=== PATIENT | female | born 1980 | race Caucasian/White ===

== ENCOUNTER 2019-10-15 14:39 | Emergency (ER) | payer OTHER ==
[~2019-10-15] VITALS: Ht 162.6 cm; Wt 68.0 kg
[~2019-10-15 14:39] MED LIST: ALBU90OI INH; ALBU90OI61 INH; AMOX875 PO; CEPH500 PO; CIPR500 PO; Cleocin HCl150 MG PO; HYDACE5 PO; OXYACE5T PO; PRED20 PO; PROCODE120 PO; PROM25 PO; Prednisone20 MG PO; RXHYDACE PO; Sulindac200 MG PO
[2019-10-15] MEDS ORDERED: NAPR220 PO (14:59)
[2019-10-15] MEDS ORDERED: FLUT1DIS2 INH (15:04)
[2019-10-15 15:05] LABS: Source, Urine Clean Catch
[2019-10-15 15:13] LABS: Bilirubin, Urine Neg (Neg); Blood, Urine 2+ (Neg); Glucose Qualitative, Urine Neg (Neg); Ketones, Urine Neg (Neg); Leukocyte Esterase, Urine 3+ (Neg); Nitrite, Urine Pos (Neg); Protein, Urine 1+ (Neg); Urobilinogen, Urine 2+ (Normal)
[2019-10-15 15:20] LABS: Appearance, Urine Hazy (Clear); Color, Urine Yellow (P-Yellow)
[2019-10-15 15:21] LABS: White Blood Cells, Urine TNTC /hpf (0-5)
[2019-10-15 15:22] LABS: BASOPHILS ABSOLUTE AUTO 0.02 K/mm3 (0.00-0.23); BASOPHILS PERCENT AUTO 0 % (0-2); EOSINOPHILS ABSOLUTE AUTO 0.08 K/mm3 (0.00-0.68); EOSINOPHILS PERCENT AUTO 1 % (0-6); Hematocrit 39.9 % (33.0-51.0); Hemoglobin 12.8 g/dL (11.5-16.0); IMMATURE GRAN ABSOLUTE AUTO 0.04 K/mm3 (0.00-0.10); IMMATURE GRAN PERCENT AUTO 0 % (0-1); LYMPHOCYTES ABSOLUTE AUTO 1.16 K/mm3 (0.84-5.20); LYMPHOCYTES PERCENT AUTO 9 % (21-46); MONOCYTES ABSOLUTE AUTO 1.13 K/mm3 (0.16-1.47); MONOCYTES PERCENT AUTO 9 % (4-13); Mean Corpuscular HGB 28.9 pg (26.0-34.0); Mean Corpuscular HGB Conc 32.1 g/dL (31.5-36.5); Mean Corpuscular Volume 90 fL (80-100); Mean Platelet Volume 8.7 fL (9.1-12.4); NEUTROPHILS ABSOLUTE AUTO 10.07 K/mm3 (1.96-9.15); NEUTROPHILS PERCENT AUTO 81 % (41-73); Platelet Count 363 K/mm3 (150-400); RDW Coefficient Variation 12.9 % (11.7-14.2); RDW Standard Deviation 42.7 fL (35.1-46.3); Red Blood Cell Count 4.43 M/mm3 (3.80-5.20)
[2019-10-15 15:23] LABS: Bacteria Many /hpf; Squamous Epithelial Cells Few /hpf (Few)
[2019-10-15 15:50] LABS: Alanine Aminotransfer (ALT/SGP 17 U/L (12-78); Albumin, Blood 3.3 g/dL (3.4-5.0); Albumin/Globulin Ratio 0.9 (0.8-1.8); Alk Phos 104 U/L (50-136); Anion Gap 7 mmol/L (6-16); Aspartate Aminotrans (AST/SGOT 10 U/L (12-37); Bilirubin, Total 0.4 mg/dL (0.1-1.0); Blood Urea Nitrogen 8 mg/dL (8-24); Bun/Creatinine Ratio 11.1 (12.0-20.0); CO2, Blood 25 mmol/L (21-32); Calcium, Blood 8.5 mg/dL (8.5-10.1); Chloride, Blood 105 mmol/L (98-108); Creatinine, Blood 0.72 mg/dL (0.40-1.00); Globulin, Blood 3.8 g/dL (2.2-4.0); Glomerular Filtration Rate >60 (60-); Glucose, Blood 118 mg/dL (70-99); Potassium, Blood 3.8 mmol/L (3.5-5.5); Sodium, Blood 137 mmol/L (136-145); Total Protein, Blood 7.1 g/dL (6.4-8.2)
[2019-10-15] MEDS ORDERED: KETO10 PO (15:59)
[2019-10-15] MEDS ORDERED: Bactrim Ds Tab1 EACH PO (15:59)
== END 2019-10-15 17:46 | disposition home or self-care (01) ==
LOC: ER 14:39
PROVIDERS: Emergency Medicine
DX: N12 Tubulo-interstitial nephritis, not specified as acute or chronic (principal); D72.829 Elevated white blood cell count, unspecified; F17.210 Nicotine dependence, cigarettes, uncomplicated; Z88.5 Allergy status to narcotic agent; Z79.899 Other long term (current) drug therapy
CPT/HCPCS: 36415; 76770; 80053; 81001; 83690; 85025; 87077; 87086; 87186; 96361; 96374; 96375; 99284-25; A9270-GY; J1885; J2405; J7030

== ENCOUNTER 2020-06-07 15:42 | Emergency (ER) | payer OTHER ==
[~2020-06-07] VITALS: Ht 162.6 cm; Wt 62.1 kg
[~2020-06-07 15:42] MED LIST changes: +Bactrim Ds Tab1 EACH PO; +FLUT1DIS2 INH; +KETO10 PO; +NAPR220 PO
[2020-06-07] MEDS ORDERED: TRAM50 PO (16:00)
[2020-06-07] MEDS ORDERED: KEFLEX500 MG PO (16:00)
== END 2020-06-07 16:11 | disposition home or self-care (01) ==
LOC: ER 15:42
DX: S61.432A Puncture wound without foreign body of left hand, initial encounter (principal); F17.200 Nicotine dependence, unspecified, uncomplicated; Z88.6 Allergy status to analgesic agent; Z88.5 Allergy status to narcotic agent; Z23 Encounter for immunization; W27.0XXA Contact with workbench tool, initial encounter
CPT/HCPCS: 90471; 90714; 99283-25

== ENCOUNTER 2020-10-16 11:50 | Emergency (ER) | payer OTHER ==
[~2020-10-16] VITALS: Ht 162.6 cm; Wt 63.5 kg
[~2020-10-16 11:50] MED LIST changes: +KEFLEX500 MG PO; +TRAM50 PO
[2020-10-16] MEDS ORDERED: CYCL10 PO (12:38)
[2020-10-16] MEDS ORDERED: Voltaren100 GM TOP (12:38)
== END 2020-10-16 13:26 | disposition home or self-care (01) ==
LOC: ER 11:50
DX: M43.6 Torticollis (principal)
CPT/HCPCS: 99283; J1885

== ENCOUNTER 2023-01-09 17:44 | Emergency (ER) | payer OTHER ==
[~2023-01-09] VITALS: Ht 162.6 cm; Wt 63.5 kg
[~2023-01-09 17:44] MED LIST changes: +CYCL10 PO; +Voltaren100 GM TOP
[2023-01-09 17:56] VITALS: BP 152/93
[2023-01-09] MEDS ORDERED: NEOPOLHCSU LEFTEAR (18:02)
== END 2023-01-09 18:00 | disposition home or self-care (01) ==
LOC: ER 17:44
DX: H60.92 Unspecified otitis externa, left ear (principal); Z88.5 Allergy status to narcotic agent; Z88.6 Allergy status to analgesic agent
CPT/HCPCS: 99282